=== PATIENT | male | born 1980 | race Two or more races ===

== ENCOUNTER 2021-08-24 23:52 | Emergency (ER) | payer OTHER ==
[~2021-08-24] VITALS: Ht 152.4 cm; Wt 90.0 kg
[2021-08-25 01:15] VITALS: BP 124/79
== END 2021-08-25 01:17 | disposition home or self-care (01) ==
LOC: ER 23:53
DX: M79.641 Pain in right hand (principal); Z72.0 Tobacco use; Z72.89 Other problems related to lifestyle
CPT/HCPCS: 73130; 99283